=== PATIENT | female | born 1970 | race Asian ===

== ENCOUNTER → 2018-02-07 12:17 | Outpatient (CLI) | payer BC, SELFPAY ==
[2018-02-07 14:28] LABS: AST(SGOT) 17 U/L (15-37); Alanine Aminotransfer ALT/SGPT 22 U/L (13-56); Albumin, Serum 3.9 g/dL (3.2-5.0); Alkaline Phosphatase 67 U/L (45-117); Anion Gap 8 (5-15); BUN 10 mg/dL (7-18); BUN/Creat Ratio 15.1 RATIO (10-20); Calcium,Total 8.8 mg/dL (8.5-10.1); Chloride 105 mmol/L (98-107); Creatinine, Serum 0.66 mg/dL (0.55-1.02); EST Glomerular Filtration Rate 102 mL/min (>60); Est Glom Filt Rate - Afr Amer 124 mL/min (>60); Globulin 3.8 g/dL (2.2-4.2); Glucose 97 mg/dL (74-106); Magnesium 2.2 mg/dL (1.6-2.6); Potassium 3.6 mmol/L (3.5-5.1); Protein, Total 7.7 g/dL (6.4-8.2); Sodium Level 140 mmol/L (136-145)
[2018-02-07 14:34] LABS: Vitamin B12 666 pg/mL (211-911); Vitamin D,25 Hydroxy 28.4 ng/mL (29.95-100.01)
== END ==
PROVIDERS: Family Provider Family Medicine; PCP Family Medicine; Visit Provider Family Medicine
DX: E55.9 Vitamin D deficiency, unspecified (principal); E53.8 Deficiency of other specified B group vitamins; R53.83 Other fatigue; Z51.81 Encounter for therapeutic drug level monitoring
CPT/HCPCS: 36415; 80053; 82306; 82607; 83735

== ENCOUNTER → 2018-02-20 12:00 | Outpatient (CLI) | payer BC, SELFPAY | PROVIDERS: Family Provider Family Medicine; PCP Family Medicine; Visit Provider Family Medicine | DX: Z12.31 Encounter for screening mammogram for malignant neoplasm of breast (principal) | CPT/HCPCS: 77063; 77067 ==

== ENCOUNTER → 2018-06-03 13:12 | Outpatient (CLI) | payer SELFPAY ==
--- NOTE | 2018-06-03 13:14 | RAD_ITS ---
STUDY: X-RAY - RIGHT SHOULDER REASON FOR EXAM: Female, 47 years old. Pain. TECHNIQUE: 3 view(s) of the shoulder. COMPARISON: Chest x-ray 06/08/2016. FINDINGS: There is a 2.4 x 2 cm lucency in the superolateral humeral head and greater tuberosity with thinning of the lateral cortex. There is a narrow zone of transition without demonstrated sclerotic rim. Findings are concerning for metastasis or myeloma. Bone cyst is an additional consideration but typically demonstrate sclerotic margins. Although the projection is different, this lesion was not demonstrated in the humeral head on the prior chest x-ray. There is no fracture or dislocation. There is mild elevation of the distal clavicle relative to the acromion, consistent with low-grade acromioclavicular injury. There is no significant change compared to the prior chest x-ray. Joint spaces are otherwise well-maintained. RAD/Shoulder min 2 Views IMPRESSION: Lucent lesion in the superolateral humeral head, concerning for malignancy. Consider bone scintigraphy for further evaluation. Electronically Signed: Mela Vincent MD at 23:25 EST Tel , Service support ,
--- OUTSIDE RECORDS SUMMARY | 2018-09-04 23:53 | XMS RPT_ITS ---
:1970 Author Organization OHIP Care Team Providers Name Role Phone Rachel Mosley Attending Unavailable Caitlin Smith Referring Unavailable Chicorelli, Rachel Attending Unavailable Chicorelli, Rachel Referring Unavailable Malys, Caitlin Primary Care Unavailable Malys, Caitlin Attending Unavailable Malys, Caitlin Referring Unavailable Malys, Caitlin Primary Care Unavailable Malys, Caitlin Attending Unavailable Malys, Caitlin Primary Care Unavailable Chicorelli, Rachel Attending Unavailable Malys, Caitlin Primary Care Unavailable Chicorelli, Rachel Referring Unavailable Chicorelli, Rachel Attending Unavailable Chicorelli, Rachel Referring Unavailable Malys, Caitlin Primary Care Unavailable ASSESSMENT, HEALTH RISK Attending Unavailable ASSESSMENT, HEALTH RISK Referring Unavailable Malys, Caitlin Primary Care Unavailable PROBLEMS PROBLEMS DATE TYPE CONDITION / CODE ATTENDING STATUS SOURCE 06/03/2018 Unknown M25.511 - Pain in Chicorelli, Active [place] right shoulder / [facility] M25.511(ICD-10) Hospital Repository 06/03/2018 Unknown M75.51 - Bursitis Chicorelli, Active [place] of right shoulder [facility] / M75.51(ICD-10) Hospital Repository 06/03/2018 Unknown M75.41 - Chicorelli, Active [place] Impingement [facility] syndrome of right Hospital shoulder / Repository M75.41(ICD-10) 02/07/2018 Unknown R53.83 - Other Malys, Caitlin Active [place] fatigue / Community R53.83(ICD-10) Hospital Repository 02/07/2018 Unknown Z51.81 - Malys, Caitlin Active [place] Encounter for Community therapeutic drug Hospital level monitoring Repository / Z51.81(ICD-10) 02/07/2018 Unknown E55.9 - Vitamin D Malys, Caitlin Active [place] deficiency, Community unspecified / Hospital E55.9(ICD-10) Repository 02/07/2018 Unknown E53.8 - Malys, Caitlin Active [place] Deficiency of Community other specified B Hospital group vitamins / Repository E53.8(ICD-10) PROCEDURES PROCEDURES No Procedure Records FoundRESULTS RESULTS ORTHOPEDIC VISIT Observed: 06/13/2018 Status: F Source: [place] REPORT 11:45 AM [facility] HOSPITAL REPOSITORY [facility] [address] [place] [address] OFFICE VISIT Date of Service: 06/03/18 MR#: [id number] Acct: [id number] Name: BYRDGIOVANNY Cheung Rep #: [id number] : 1970 Provider: Rachel Mosley DO Age/Sex: 47/F Location: [facility] [place].S[place] Status: Signed Intake Intake Visit Reasons: RIGHT SHOULDER Is patient in pain?: Yes Allergies No Known Allergies Allergy (Unverified 06/03/18 13:03) [facility] Social History Smoking Status: Never smoker HPI RIGHT SHOULDER: Details: GIOVANNY BYRD is a 47 year old F here today for right shoulder pain. She states that she has had pain for about 3 months. She denies any known injury. Patient states that she works out then painted for 4 hours and is unsure if she injured her shoulder but she noticed pain following those activities. Patient has pain over her anterior shoulder and lateral shoulder. She has limited range of motion due to pain. She has pain with reaching across her body. Patient denies any recent xrays, injections or MRI. She denies any physical therapy. Patient denies any ibuprofen or icing. Denies numbness, tingling or other associated symptoms. Denies fever chills or other constitutional symptoms. ROS Const Reports system reviewed and no additional complaints, except as docu Eyes Reports system reviewed and no additional complaints, except as docu ENT Reports system reviewed and no additional complaints, except as docu Card Reports system reviewed and no additional complaints, except as docu Resp Reports system reviewed and no additional complaints, except as docu GI Reports system reviewed and no additional complaints, except as docu Reports system reviewed and no additional complaints, except as docu Musc Reports joint pain, Reports limited joint movement Skin/Breast Reports system reviewed and no additional complaints, except as docu Neuro Yes system reviewed and no additional complaints, except as docu Psych Reports system reviewed and no additional complaints, except as docu Endo Reports system reviewed and no additional complaints, except as docu Ortho Exam Right Shoulder Skin/Wound: Yes CDI Contralateral Normal: Yes Testing: Positive Hawkin's, AROM-External Rotation at side 0-60, AROM-Forward Elevation 0-180 (150) and TTP Biceps; negative TTP AC Joint or translation Internal Rotation: L1 SHOULDER: strength 5/5 Office Procedures Kenalog 40 mg/mL suspension for injection (triamcinolone acetonide) 80 mg Intra-Articular ONCE Injections Yes Subacromial Injection Right Office Meds Kenalog Performing Provider: Rachel Mosley DO Administered by: Rachel Mosley DO on 06/03/18 13:52 Dose Route Admin Location Lot Number Expiration DateNDC Freight Broker Agent 80 mg Intra-Articularright shoulder [id number] 08/16/19 8411-4591-81 [facility] Assessment AND Plan 1. Subacromial impingement of right shoulder M75.41 Plan on xray of shouleder, questionable lucency/bone cyst at greater tuberosity. will await final read from radiology and proceed from there. patient doesnt have other complaints- no fever, chills, weight gain/loss or sweat at night, may be incidental finding but may need bone scan vs MRI with contrast. Again, awaiting final rad read and will proceed accordingly. patient also has what appears to be chronic ac separation vs normal anatomical variant. no pain at Ac joint. addendum 06/05- called patient, left message. will order bone scan based on rad recommendations. will discuss with patient and try to call again tomorrow. X-rays were reviewed. There is no obvious fracture, dislocation, or lucency noted, signs of old AC joint separation. Educated on the anatomy of the shoulder and explained that she has impingement and bursitis. Her treatment options are do nothing, PT with HEP, injection and if the conservative treatment fails will consider an MRI. Explained the risks and benefits of injection today and patient elects to proceed. Follow up as needed or sooner if pain, swelling, numbness or associated symptoms, or concerns develop. All questions answered. Patient in agreement of plan. Orders Orders: Medications Discontinued: Kenalog (triamcinolone acetonide) Ntpouzde93 mg (2 mL) Intra-Articular ONCE 2 mL 0RF NS nued Reason: Office Medication has been Docu mented as given 2. 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) 06/13/18 1148 <Electronically signed by Rachel Mosley DO> Date Rachel Mosley DO Cosigner Signature: Date (if applicable) CC: BONE SCAN THREE Observed: 06/13/2018 Status: F Source: [place] PHASE 9:17 AM [facility] REPOSITORY [facility] Imaging Services [address] [place] [address] Bone Scan Three Phase MR#: [id number] Acct: [id number] Name: GIOVANNY BYRD Rep #: [id number] : 1970 F 47 From: Addi Sears DO PCP: Caitlin Smith DO Status: REG CLI Study: Bone Scan Three Phase Date of Exam: 06/13/18 Exam# [id number] Ordering Dr: Rachel Mosley DO CLINICAL: 47-year-old female with history of right shoulder pain and radiographic abnormality defined on plain film x-ray report right shoulder 06/03/2018. LIMITED 99m Tc MDP THREE PHASE BONE SCINTIGRAPHY COMPARISON: Plain film radiograph report right shoulder 06/03/2018 FINDINGS: Following the intravenous administration of 25.8 mCi of 99m Tc MDP, three-phase bone acquisitions of the cervical-thoracic spine, anterior-posterior chest reveal: 1. The flow and immediate static blood pool acquisitions demonstrate normal, symmetric arterial and venous phase distribution of the radiopharmaceutical. There is physiologic distribution of the radiotracer in the cardiac and hepatic blood pool. There is apparent visualization of the current pole left kidney collecting system. 2. Delayed images depict mild increased radiopharmaceutical concentration identified in the right proximal humeral metaphysis which appears to correlate with the radiographic abnormality defined on plain film x-ray of the right shoulder dated 06/03/2018. 3. Facilitated uptake is otherwise symmetrically noted in the acromioclavicular, sternoclavicular and glenohumeral compartments of both shoulders. 4. The remaining limited skeletal structures are scintigraphically unremarkable. NM/Bone Scan Three Phase IMPRESSION: 1. The increase in radiopharmaceutical concentration identified in the right proximal humeral metaphysis appears to correlate with the radiographic abnormality defined on plain film x-ray of the right shoulder report dated 06/03/2018. Correlation with magnetic resonance imaging may be of benefit for further evaluation. 2. 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 Electronically Signed: Addi Sears DO at 22:17 EST Tel , Service support , CC: Rachel Mosley DO; Caitlin Smith DO Ecologist Technician: Signed SHOULDER MIN 2 VIEWS Observed: 06/03/2018 Status: F Source: [place] 1:14 PM [facility] REPOSITORY [facility] Imaging Services [address] [place] [address] Shoulder min 2 Views MR#: [id number] Acct: [id number] Name: GIOVANNY BYRD Rep #: [id number] : 1970 F 47 From: Mela Vincent MD PCP: Caitlin Smith DO Status: REG CLI Study: Shoulder min 2 Views Date of Exam: 06/03/18 Exam# [id number] Ordering Dr: Rachel Mosley DO STUDY: X-RAY - RIGHT SHOULDER REASON FOR EXAM: Female, 47 years old. Pain. TECHNIQUE: 3 view(s) of the shoulder. COMPARISON: Chest x-ray 06/08/2016. FINDINGS: There is a 2.4 x 2 cm lucency in the superolateral humeral head and greater tuberosity with thinning of the lateral cortex. There is a narrow zone of transition without demonstrated sclerotic rim. Findings are concerning for metastasis or myeloma. Bone cyst is an additional consideration but typically demonstrate sclerotic margins. Although the projection is different, this lesion was not demonstrated in the humeral head on the prior chest x-ray. There is no fracture or dislocation. There is mild elevation of the distal clavicle relative to the acromion, consistent with low-grade acromioclavicular injury. There is no significant change compared to the prior chest x-ray. Joint spaces are otherwise well-maintained. RAD/Shoulder min 2 Views IMPRESSION: Lucent lesion in the superolateral humeral head, concerning for malignancy. Consider bone scintigraphy for further evaluation. Electronically Signed: Mela Vincent MD at 23:25 EST Tel , Service support , CC: Rachel Mosley DO; Caitlin Smith DO Ecologist Technician: Signed LIPID PROFILE Collected: 04/01/2018 Status: F Source: [place] 8:15 AM [facility] REPOSITORY TYPE CODE TESTS RESULT OUT OF RANGE REFERENCE UNITS LAB L501.4900 200 mg/dL Normal CHOL 144 Result Comment: <200 mg/dL Desirable 200-240 mg/dL Borderline >240 mg/dL High Risk LAB L501.5000 mg/dL Normal TRIG 97 Result Comment: The drugs N-Acetylcysteine and Metamizole may falsely depress this assay. Serum Triglycerides Reference Interval Normal <150 mg/dL Borderline high 150 - 199 mg/dL High 200 - 499 mg/dL Very High > or = 500 mg/dL LAB L501.6400 mg/dL Normal HDL 60 Result Comment: The drugs N-Acetylcysteine and Metamizole may falsely depress this assay. Reference Range HDL <40 mg/dL Low HDL Cholesterol HDL >or= 60 mg/dL High HDL Cholesterol LAB L501.6500 0-130 mg/dL Normal LDL 65 LAB L501.6600 5-40 mg/dL Normal VLDL 19 Performed By: #### L500.4100, L501.0100 #### [facility] [address] [place], [address] GLUCOSE Collected: 04/01/2018 Status: F Source: [place] 8:15 AM [facility] REPOSITORY TYPE CODE TESTS RESULT OUT OF RANGE REFERENCE UNITS LAB L501.0100 74-106 mg/dL Normal GLU 77 Result Comment: Please note revised GLUCOSE reference range effective 2017. Performed By: #### L500.4100, L501.0100 #### [facility] [address] [place], [address] SCREENING MAMM (CAD), Observed: 02/20/2018 Status: F Source: [place] BILAT 12:02 PM [facility] HOSPITAL REPOSITORY [facility] Imaging Services [address] [address] SCREENING MAMM (CAD), BILAT MR#: [id number] Acct: [id number] Name: GIOVANNY BYRD Rep #: [id number] : 1970 F 47 From: Dorian Lopez MD PCP: Caitlin Smith DO Status: REG CLI Study: SCREENING MAMM (CAD), BILAT Date of Exam: 02/20/18 Exam# [id number] Ordering Dr: Caitlin Smith DO MAMMOGRAPHY - BILATERAL SCREENING REASON FOR EXAM: Female, 47 years old. Routine annual screening examination. PERTINENT HISTORY: Non-contributory. TECHNIQUE: Digital bilateral breast reymundo (3D mammographic acquisition) in the CC and MLO projections. 2-D mediolateral oblique (MLO) and craniocaudad (CC) views of both breasts were obtained. CAD: Full Field Digital Mammography with Computer Added Detection was performed. COMPARISON: Comparison is made with prior study dated October 15, 2016 and April 11, 2015. FINDINGS: Breast Composition: The breasts are extremely dense, which lowers the sensitivity of mammography. There are no dominant masses or suspicious calcifications. Stable small bilateral axillary lymph nodes. No other significant abnormalities are identified. There has been no significant change since the prior study. BI/SCREENING MAMM (CAD), BILAT IMPRESSION: Stable bilateral screening mammogram. Yearly follow-up mammogram recommended. (A) ASSESSMENT CATEGORY: BIRADS Category 2: Benign. A letter regarding these results will be sent to the patient by the facility within 30 days. Approximately 10% of breast cancers are not detected by mammography. A normal mammogram should not delay biopsy of a clinically suspicious abnormality. [id number] Electronically Signed: Dorian Lopez MD at 14:39 EDT Tel [phone], Service support , CC: Caitlin Smith DO Ecologist Technician: Signed COMPREHENSIVE METABOLIC Collected: 02/07/2018 Status: F Source: [place] LOYD 12:30 PM [facility] REPOSITORY TYPE CODE TESTS RESULT OUT OF RANGE REFERENCE UNITS LAB L501.0100 74-106 mg/dL Normal GLU 97 Result Comment: Please note revised GLUCOSE reference range effective 2017. LAB L501.1000 7-18 mg/dL Normal BUN 10 LAB L501.1100 0.55-1.02 mg/dL Normal CREAT,SERUM 0.66 Result Comment: The validity of the calculated GFR AND GFRAA in patients over 70 years has not been determined. Clinical correlation is essential. LAB L501.1110 >60 mL/min Normal EST GFR 102 Result Comment: Non- GFR Calc LAB L501.1115 >60 mL/min Normal EST GFR - AA 124 Result Comment: GFR Calc LAB L501.1300 10-20 RATIO Normal BUN/CRE 15.1 LAB L501.1500 6.4-8.2 g/dL T Normal PROT 7.7 LAB L501.1800 3.2-5.0 g/dL Normal ALB 3.9 LAB L501.1950 2.2-4.2 g/dL Normal GLOB 3.8 LAB L501.2000 0.9-2.4 RATIO Normal A/G 1.0 LAB L501.2200 8.5-10.1 mg/dL CA Normal 8.8 LAB L501.4100 15-37 U/L Normal AST 17 LAB L501.4305 45-117 U/L Normal ALK P 67 LAB L501.4405 13-56 U/L Normal ALT 22 LAB L501.4600 0.20-1.00 mg/dL T Normal BILI 0.60 LAB L501.5300 136-145 mmol/L NA Normal 140 LAB L501.5600 3.5-5.1 mmol/L K Normal 3.6 LAB L501.5900 98-107 mmol/L CL Normal 105 LAB L501.6100 21.0-32.0 mmol/L Normal CO2 27.0 LAB L501.6200 5-15 Normal GAP 8 Performed By: #### L500.4050, L501.5200 #### [facility] [address] [place], [address] MAGNESIUM Collected: 02/07/2018 Status: F Source: [place] 12:30 PM [facility] REPOSITORY TYPE CODE TESTS RESULT OUT OF RANGE REFERENCE UNITS LAB L501.5200 1.6-2.6 mg/dL Normal MG 2.2 Performed By: #### L500.4050, L501.5200 #### [facility] [address] [place], [address] VITAMIN B12 Collected: 02/07/2018 Status: F Source: [place] 12:30 PM [facility] REPOSITORY TYPE CODE TESTS RESULT OUT OF RANGE REFERENCE UNITS LAB L503.0105 211-911 pg/mL Normal Vitamin B12 666 Performed By: #### L503.0105, L506.1000 #### [facility] [address] [place], [place], [address] VITAMIN D,25 HYDROXY Collected: 02/07/2018 Status: F Source: [place] 12:30 PM [facility] REPOSITORY TYPE CODE TESTS RESULT OUT OF REFERENCE UNITS RANGE LAB L506.1000 29.95-100.01 ng/mL Low Vitamin D 28.4 25-OH Result Comment: Vitamin D 25(OH) Status Range Deficiency <20 ng/mL (50nmol/L) Insuffciency 20 - 30 ng/mL (50 - 75 nmol/L) Sufficiency 30 - 100 ng/mL (75 - 250 nmol/L) Toxicity >100 ng/mL (>250 nmol/L) Performed By: #### L503.0105, L506.1000 #### [facility] [address] [place], [place], [address] ALLERGIES ALLERGIES DATE TYPE / CODE NAME / CODE REACTION SEVERITY SOURCE 06/03/2018 Drug No Known Unknown [place] [facility] Allergy/4160 Allergies/F00 Hospital 86227(SNOMED [id number](RXNOR Repository CT) M) ENCOUNTERS ENCOUNTERS ADMIT/DISCHARGE ACCOUNT ADMITTING ENCOUNTER LOCATION SOURCE NUMBER CLASS 06/13/2018 [id number] Amb[place] [facility] ing:NM Repository 06/12/2018 [id number] Ambulatory [place] 1 [facility] ing:PT Repository 06/03/2018 [id number] Ambulatory [place] 3 [facility] ing:HPRAD Repository 06/03/2018/ [id number] Ambulatory BMSBuilding:B [place] 8 9 [facility] Repository 04/01/2018 [id number] [place] [facility] ing:HW Repository 02/20/2018 [id number] Ambulatory [place] 5 [facility] ing:OPBI Repository 02/07/2018 [id number] Ambulatory [place] 7 [facility] ing:MTLAB Repository PAYERS PAYERS ENCOUNTER GUARANTOR PAYER SUBSCRIBER SOURCE 06/13/2018 GIOVANNY [id number] Primary GIOVANNY Cheung HANDOB: [id number] Hospital [id number]: [id number] Repository [phone] () Date:9116-09-20HN [address] [place] [address] [id number]: 06/13/2018 Secondary NOT GIVENUNK [place] Insurance:SELF PAY [facility] Number: Effective Repository Date:2018-06-11 06/12/2018 GIOVANNY Cheung [id number] Primary GIOVANNY Cheung HANDOB: [place] Insurance:ANTHEMPolic [id number] [place] Number: [facility] [address]Wdz: [id number] Repository [phone] () Date:5440-19-47VS [address], [place] [address]GG: 06/12/2018 Secondary NOT GIVENUNK [place] Insurance:SELF PAY [facility] Number: Effective Repository Date:2018-06-03 06/03/2018 GIOVANNY [id number] Primary NOT GIVENUNK [place] Insurance:SELF PAY [place] [id number]: [phone]) Number: Effective Repository [phone] () Date:2018-06-03 06/03/2018 GIOVANNY [id number] Primary DONG LU HANDOB: [place] Insurance:ANTHEMPolic [id number] [facility] [place] Number: [facility] [address]Wje: (717) [id number] Repository [phone] () Date:8500-60-18SH [address] [place] [address] 27[address]FO: 06/03/2018 Secondary NOT GIVENUNK [place] Insurance:SELF PAY [facility] Hospital Number: Effective Repository Date:2018-06-03 04/01/2018 Giovanny Quinones1 Primary NOT GIVENUNK [place] Insurance:SELF PAY [place] [id number]: [phone]) Number: Effective Repository [phone] () Date:2018-03-24 02/20/2018 Giovanny [id number] Primary Dong Lu HanDOB: [place] Insurance:ANTHEMPolic [id number] [facility] [place] Number: [facility] [address]Nrq: [phone]) [id number] Repository [phone] () Date:7912-45-68OB [address] [place] [address] 69[address]UG: 02/20/2018 Secondary NOT GIVENUNK [place] Insurance:SELF PAY [facility] Hospital Number: Effective Repository Date:2018-02-03 02/07/2018 Giovanny Lu [id number] Primary Dong Lu HanDOB: [place] Insurance:ANTHEMPolic [id number] [facility] [place] [facility] [address]Uxy: [phone]) [id number] Repository [phone] () Date:[id number] [address] [place] [address]LA: 02/07/2018 Secondary NOT GIVENUNK [place] Insurance[facility]LF [facility] Effective Repository Date:2018-02-07
== END ==
PROVIDERS: Family Provider Family Medicine; PCP Family Medicine; Referring Provider Orthopaedic Surgery; Visit Provider Orthopaedic Surgery
DX: M25.511 Pain in right shoulder (principal)
CPT/HCPCS: 73030

== ENCOUNTER 2018-06-12 13:53 | Outpatient (RCR) | payer BC, SELFPAY | END 2018-06-12 19:00 | disposition home or self-care (01) | LOC: PT 13:53 | PROVIDERS: Family Provider Family Medicine; PCP Family Medicine; Referring Provider Orthopaedic Surgery; Visit Provider Orthopaedic Surgery | DX: M75.51 Bursitis of right shoulder (principal); M75.41 Impingement syndrome of right shoulder ==

== ENCOUNTER → 2018-06-13 09:15 | Outpatient (CLI) | payer BC, SELFPAY ==
--- NOTE | 2018-06-13 09:17 | NM_ITS ---
CLINICAL: 47-year-old female with history of right shoulder pain and radiographic abnormality defined on plain film x-ray report right shoulder 06/03/2018. LIMITED 99m Tc MDP THREE PHASE BONE SCINTIGRAPHY COMPARISON: Plain film radiograph report right shoulder 06/03/2018 FINDINGS: Following the intravenous administration of 25.8 mCi of 99m Tc MDP, three-phase bone acquisitions of the cervical-thoracic spine, anterior-posterior chest reveal: 1. The flow and immediate static blood pool acquisitions demonstrate normal, symmetric arterial and venous phase distribution of the radiopharmaceutical. There is physiologic distribution of the radiotracer in the cardiac and hepatic blood pool. There is apparent visualization of the current pole left kidney collecting system. 2. Delayed images depict mild increased radiopharmaceutical concentration identified in the right proximal humeral metaphysis which appears to correlate with the radiographic abnormality defined on plain film x-ray of the right shoulder dated 06/03/2018. 3. Facilitated uptake is otherwise symmetrically noted in the acromioclavicular, sternoclavicular and glenohumeral compartments of both shoulders. 4. The remaining limited skeletal structures are scintigraphically unremarkable. NM/Bone Scan Three Phase IMPRESSION: 1. The increase in radiopharmaceutical concentration identified in the right proximal humeral metaphysis appears to correlate with the radiographic abnormality defined on plain film x-ray of the right shoulder report dated 06/03/2018. Correlation with magnetic resonance imaging may be of benefit for further evaluation. 2. 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 Electronically Signed: Addi Sears DO at 22:17 EST Tel , Service support ,
== END ==
PROVIDERS: Family Provider Family Medicine; PCP Family Medicine; Referring Provider Orthopaedic Surgery; Visit Provider Orthopaedic Surgery
DX: M85.621 Other cyst of bone, right upper arm (principal)
CPT/HCPCS: 78315

== ENCOUNTER → 2018-08-15 16:35 | Outpatient (CLI) | payer BC, SELFPAY ==
[2018-08-15 17:47] LABS: ALB/GLOB Ratio 1.1 RATIO (0.9-2.4); AST(SGOT) 16 U/L (15-37); Alanine Aminotransfer ALT/SGPT 24 U/L (13-56); Alkaline Phosphatase 74 U/L (45-117); Anion Gap 9 (5-15); BUN 9 mg/dL (7-18); BUN/Creat Ratio 12.8 RATIO (10-20); Calcium,Total 8.6 mg/dL (8.5-10.1); Chloride 107 mmol/L (98-107); EST Glomerular Filtration Rate 95 mL/min (>60); Est Glom Filt Rate - Afr Amer 115 mL/min (>60); Globulin 3.8 g/dL (2.2-4.2); Glucose 89 mg/dL (74-106); LDH 161 U/L (84-246); Potassium 3.6 mmol/L (3.5-5.1); Protein, Total 7.8 g/dL (6.4-8.2); Sodium Level 141 mmol/L (136-145)
[2018-08-18 11:02] LABS: CA 27.29 10.6 U/mL (0.0-38.6); Cancer Antigen 125 13.1 U/mL (0.0-38.1); Carbohydrate AG 19-9 7 U/mL (0-35); Carcinoembryonic Antigen 0.9 ng/mL (0.0-4.7)
== END ==
PROVIDERS: Family Provider Family Medicine; PCP Family Medicine; Referring Provider Family Medicine; Visit Provider Family Medicine
DX: R93.89 Abnormal findings on diagnostic imaging of other specified body structures (principal); M89.9 Disorder of bone, unspecified
CPT/HCPCS: 36415; 80053; 82378; 83615; 86300; 86301; 86304

== ENCOUNTER → 2018-08-18 09:03 | Outpatient (CLI) | payer BC, SELFPAY ==
--- NOTE | 2018-08-18 09:09 | RAD_ITS ---
STUDY: X-RAY BONE SURVEY COMPLETE REASON FOR EXAM: Female, 47 years old. Lytic bone lesion in the right humeral head. Rule out additional lesions TECHNIQUE: 1 One view of the pelvis was obtained. 2 views of the cervical spine were obtained. 2 views of the thoracic spine were obtained. 2 views of the lumbar spine were obtained. 1 views of the femur. 1 views of the humerus. : 1 views of the skull were obtained. COMPARISON: Plain film right shoulder dated 06/03/2018 as well as bone scan dated 06/13/2018. FINDINGS: Lungs are clear. Heart size is within normal limits. As seen on the prior radiograph, there is a lytic process at the greater tuberosity of the right humeral head. No other lytic or blastic lesions noted throughout the osseous structures. Specifically, no calvarial lesions as well. Remaining stranding soft tissues are within normal limits. Bone scan done June 13, 2018 demonstrated no additional areas of abnormal uptake. RAD/Bone Survey Comp(Axial&Append) IMPRESSION: No other areas of lytic or blastic involvement of the osseous structures. Again, recommend MRI right shoulder to further evaluate lytic lesion. Electronically Signed: Butch Nuñez DO at 10:04 EST Tel , Service support ,
== END ==
PROVIDERS: Family Provider Family Medicine; PCP Family Medicine; Visit Provider Family Medicine
DX: M89.9 Disorder of bone, unspecified (principal)
CPT/HCPCS: 77075

== ENCOUNTER → 2018-10-24 17:03 | Outpatient (CLI) | payer BC, SELFPAY ==
--- NOTE | 2018-10-24 17:07 | MRI_ITS ---
STUDY: MRI RIGHT SHOULDER REASON FOR EXAM: Female, 47 years old. Pain. Lytic lesion. Abnormal x-ray TECHNIQUE: Standardized fat and water weighted pulse sequences were obtained in all 3 orthogonal planes. COMPARISON: Bone scan June 13, 2018. X-rays June 03, 2018 and August 18, 2018. FINDINGS: Tendinosis of the supraspinatus with partial intrasubstance and bursal surface distal tendon tears, series 6 image 06/03. Normal infraspinatus tendon. Normal subscapularis tendon. Normal teres minor tendon. Normal supraspinatus muscle. Normal infraspinatus muscle. Normal subscapularis muscle. Normal teres minor muscle. Normal glenohumeral articulation. Normal humeral head and visualized proximal humerus. Normal biceps labral complex. Normal intracapsular long biceps tendon. Normal labrum. Normal capsulo- ligamentous complex. Normal rotator interval. There is mild osteoarthritis of the acromioclavicular articulation. There is a Type IV morphology (inferior convex) acromion, with a neutral orientation. There is mild fluid distention of the subacromial bursa, consistent with mild subacromial-subdeltoid bursitis. Normal visualized coracohumeral and coracoacromial ligaments. Normal quadrilateral space. Normal axillary space. Normal deltoid muscle. Normal trapezius muscle. There is no enhancing mass. No focal destruction. MRI/Upper Ext Joint Only W/WO Cont IMPRESSION: No osseous destruction seen. No enhancing mass. Partial tears of the distal supraspinatus tendon. Subacromial subdeltoid bursitis. Mild acromioclavicular arthrosis Electronically Signed: Mike Toledo MD at 8:42 EDT , Service support ,
== END ==
PROVIDERS: Family Provider Family Medicine; PCP Family Medicine; Referring Provider Orthopaedic Surgery; Visit Provider Orthopaedic Surgery
DX: M89.9 Disorder of bone, unspecified (principal)
CPT/HCPCS: 73223; A9575

== ENCOUNTER → 2019-02-04 | Outpatient (CLI) | payer BC, SELFPAY ==
[2019-02-04 17:34] LABS: Absolute Lymphocyte Count 2.52 X10^3/uL (0.83-4.51); Absolute Neutrophil Count 4.2 X10^3/uL (2.0-7.7); Basophil# 0.04 X10^3/uL; Basophil% 0.5 % (0-1); Eosinophils% 2.7 % (0-5); Hematocrit 41.1 % (37-47); Hemoglobin 13.4 g/dL (12.0-15.0); Lymphocyte # 2.52 X10^3/ul (4.0); Lymphocyte % 33.6 % (19-41); Mean Corp Hgb Conc 32.6 g/dL (32-36); Mean Corpuscular Hgb 30.7 pg (27.0-32.0); Mean Corpuscular Volume 94.1 fL (81-99); Mean Platelet Vol. 9.7 fl (6.2-12.0); Monocyte# 0.58 X10^3/uL; Monocyte% 7.7 % (0-10); NRBC Flagged by Analyzer 0 % (0-5); Neutrophil # 4.16 X10^3/uL (2.7-7.7); Neutrophil % 55.4 % (47-70); Platelet Count 280 K/mm3 (150-450); RBC Distribution Width CV 11.8 % (11.6-14.6); Red Blood Count 4.37 M/mm3 (4.2-5.4); White Blood Count 7.5 K/mm3 (4.4-11.0)
[2019-02-04 18:17] LABS: Progesterone Level 0.21 ng/mL (See Comment)
[2019-02-04 18:24] LABS: Estradiol 190.3 pg/mL; Follicle Stimulating Hormone 4.7 mIU/mL; Free T3 2.5 pg/mL (2.18-3.98); Luteinizing Hormone 2.1 mIU/mL; T4 Free Direct 1.12 ng/dL (0.76-1.46); Thyroid Stim Hormone (TSH) 3.67 uIU/mL (0.358-3.74)
== END | disposition home or self-care (01) ==
LOC: MTLAB 17:00
PROVIDERS: Family Provider Family Medicine; PCP Family Medicine; Referring Provider Family Medicine; Visit Provider Family Medicine
DX: N93.8 Other specified abnormal uterine and vaginal bleeding (principal); E55.9 Vitamin D deficiency, unspecified; R53.83 Other fatigue
CPT/HCPCS: 36415; 82306; 82670; 83001; 83002; 84144; 84439; 84443; 84481; 85025

== ENCOUNTER → 2019-02-20 | Outpatient (CLI) | payer BC, SELFPAY ==
--- NOTE | 2019-02-20 14:13 | US_ITS ---
STUDY: ULTRASOUND OF THE FEMALE PELVIS - COMPLETE REASON FOR EXAM: Female, 48 years old. Irregular bleeding TECHNIQUE: Transabdominal and Transvaginal TECHNICAL QUALITY: Adequate. COMPARISON: None. FINDINGS: The uterus is retroflexed and is in a midline position. The uterus measures 8.5 x 5.0 x 4.9 cm. The cervix is anteverted. The endometrium measures 5 mm in thickness, and is hyperechoic. There is no demonstrated endometrial mass. There is no demonstrated myometrial mass. The right ovary is visualized. The right ovary measures 4.4 x 1.9 x 1.2 cm. There is no right ovarian cyst or ovarian mass. There is no visualized right adnexal mass or complex lesion. There is normal arterial and normal venous vascularity. The left ovary is visualized. The left ovary measures 2.5 x 1.2 x 1.2 cm. There is no left ovarian cyst or ovarian mass. There is no visualized left adnexal mass or complex lesion. There is normal arterial and normal venous vascularity. There is a moderate amount of pelvic free fluid. US/Pelvic (Non ) IMPRESSION: Moderate amount of pelvic free fluid. Otherwise, unremarkable pelvic ultrasound. Electronically Signed: Dany Kaufman, at 15:40 EDT Tel , Service support ,
--- NOTE | 2019-02-20 14:13 | US_ITS ---
STUDY: ULTRASOUND OF THE FEMALE PELVIS - COMPLETE REASON FOR EXAM: Female, 48 years old. Irregular bleeding TECHNIQUE: Transabdominal and Transvaginal TECHNICAL QUALITY: Adequate. COMPARISON: None. FINDINGS: The uterus is retroflexed and is in a midline position. The uterus measures 8.5 x 5.0 x 4.9 cm. The cervix is anteverted. The endometrium measures 5 mm in thickness, and is hyperechoic. There is no demonstrated endometrial mass. There is no demonstrated myometrial mass. The right ovary is visualized. The right ovary measures 4.4 x 1.9 x 1.2 cm. There is no right ovarian cyst or ovarian mass. There is no visualized right adnexal mass or complex lesion. There is normal arterial and normal venous vascularity. The left ovary is visualized. The left ovary measures 2.5 x 1.2 x 1.2 cm. There is no left ovarian cyst or ovarian mass. There is no visualized left adnexal mass or complex lesion. There is normal arterial and normal venous vascularity. There is a moderate amount of pelvic free fluid. US/Transvaginal Non- IMPRESSION: Moderate amount of pelvic free fluid. Otherwise, unremarkable pelvic ultrasound. Electronically Signed: Dany Kaufman, at 15:40 EDT Tel , Service support ,
== END | disposition home or self-care (01) ==
PROVIDERS: Family Provider Family Medicine; PCP Family Medicine; Referring Provider Family Medicine; Visit Provider Family Medicine
DX: N93.8 Other specified abnormal uterine and vaginal bleeding (principal); N94.6 Dysmenorrhea, unspecified
CPT/HCPCS: 76830; 76856; 93976

== ENCOUNTER → 2019-02-27 | Outpatient (CLI) | payer BC, SELFPAY ==
--- NOTE | 2019-02-27 15:41 | BI_ITS ---
MAMMOGRAPHY - BILATERAL SCREENING REASON FOR EXAM: Female, 48 years old. Routine annual screening examination. PERTINENT HISTORY: Non-contributory. TECHNIQUE: Digital bilateral breast ben (3D mammographic acquisition) in the CC and MLO projections. 2-D mediolateral oblique (MLO) and craniocaudad (CC) views of both breasts were obtained. CAD: Full Field Digital Mammography with Computer Added Detection was performed. COMPARISON: Comparison is made with prior study dated February 20, 2018 and October 15, 2016. FINDINGS: Breast Composition: The breasts are extremely dense, which lowers the sensitivity of mammography. There are no dominant masses or suspicious calcifications. No other significant abnormalities are identified. There has been no significant change since the prior study. BI/SCREEN MAMM (CAD) W/BEN BILAT IMPRESSION: Stable bilateral screening mammogram. Yearly follow-up mammogram recommended. (A) ASSESSMENT CATEGORY: BIRADS Category 1: Negative. A letter regarding these results will be sent to the patient by the facility within 30 days. Approximately 10% of breast cancers are not detected by mammography. A normal mammogram should not delay biopsy of a clinically suspicious abnormality. [id number] Electronically Signed: Dorian Lopez, at 8:33 EDT , Service support ,
== END | disposition home or self-care (01) ==
LOC: OPBI 15:39
PROVIDERS: Family Provider Family Medicine; PCP Family Medicine; Referring Provider Family Medicine; Visit Provider Family Medicine
DX: Z12.31 Encounter for screening mammogram for malignant neoplasm of breast (principal)
CPT/HCPCS: 77063; 77067

== ENCOUNTER 2019-03-25 09:56 | Day surgery (SDC) | payer BC, SELFPAY ==
--- NOTE | 2019-03-20 10:45 | HP_ITS ---
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 Is patient in pain?: No Allergies No Known Allergies Allergy (Unverified 03/20/19 10:19) Medications levonorgestrel-ethinyl estradiol 0.1 mg-20 mcg tablet 1 tab PO DAILY #28 tab 03/20/19 [History Confirmed 03/20/19] pantoprazole 40 mg tablet,delayed release 40 mg PO DAILY #30 tab 03/20/19 [Rx Confirmed 03/20/19] zolpidem 5 mg tablet 5 mg PO ONCE PRN #30 tab 03/20/19 [History Confirmed 03/20/19] PFSH Medical History (Updated 03/20/19 @ 10:11 by Kasey Turner) Dysmenorrhea (Acute) Chronic insomnia (Chronic) Nausea (Acute) Surgical History (Updated 03/20/19 @ 10:11 by Kasey Turner) History of (Acute) Family History (Updated 03/20/19 @ 10:12 by Kasey Turner) Father Hypertension Social History (Updated 03/20/19 @ 10:45 by Deidre Chowdhury MD) Smoking Status: Never smoker second hand exposure: No alcohol intake: current alcohol intake frequency: holidays/special occasions only substance use type: does not use caffeine: Yes what type of physical activity do you participate in: aerobics frequency: 1-2 times per week duration: 45-60 minutes/day HPI HPI HPI: GOPI BYRD, is a 48 F who presents to the office today for HPI HPI Surgical H&P: Yes HPI: GOPI BYRD, is a 48 F who presents to the office today for epigastric pain and reflux. Patient states that she has had epigastric pain off and on since college. She describes herself as having weak stomach. Patient has never had an EGD. Patient states that she gets really hungry she can get some epigastric pain rates it an 8?9/10 and will improve with eating. Patient also does notice acid reflux about 5 days at the week and takes related data eating PRN for this. Patient states she no longer has any issues with diarrhea after she is stayed away from lactose. Patient has bowel movements daily denies any blood denies any history of colonoscopy or family history of colon cancer or gastric cancer. Patient will also states that if she eats beef or greasy foods she may have that epigastric pain and nausea after eating as well-- does not seem to be immediately after eating but occurs before an hour after eating. ROS General General: No fatigue Cardio Cardiovascular: No chest pain Gastro Gastrointestinal: Yes abdominal pain, Yes nausea or vomiting (no vomiting), No diarrhea, No constipation, No blood in stool, Yes acid reflux, No hemorrhoids, No ulcers, No gallbladder problem, No black,tarry stools Exam Const General: cooperative, comfortable, no acute distress Resp Effort & Inspection: normal respiratory effort Cardio Rate: regular rate GI Inspection: non-distended, scar (Low midline incision, ) Palpation: soft, no guarding, nontender Neuro General: oriented x3 Extrem General: no clubbing, cyanosis or edema Psych Affect: normal affect Assessment & Plan Problems 1. Gastroesophageal reflux disease K21.9 2. Epigastric pain R10.13 Plan We will give patient a prescription of Protonix 40 mg p.o. daily as she does have reflux symptoms at least 5 times a week. Also plan for an EGD. Patient states her previous diarrhea has improved since she has been avoiding lactose and she has regular bowel movements and no need for a colonoscopy currently. Patient did states she had issues with greasy food and beef with abdominal pain afterwards pointing to the epigastric but the pain was not immediately after eatting--question if she could have some gallbladder related symptoms. Discussed with patient that we would first try the Protonix and the scope if she continued to have symptoms on the medication would get an ultrasound of the gallbladder. I have discussed the above with the patient. I have offered the patient EGD for evaluation. I have explained the risks/benefits of the procedure and described the procedure. I have discussed the risks with the patient, including but not limited to: infection, bleeding, perforation of the GI tract requiring emergency surgery, inability to complete the procedure, injury to any internal organs, complications of anesthesia, etc. - the patient understands and agrees to proceed. I have answered all the patient's questions to the patient's satisfaction and the patient has no further questions. Deidre Chowdhury M.D. Pager: [phone] [facility] [address] [place] [address], [facility], [address] [place] [address] Office: [phone] Medications New: pantoprazole 40 mg PO DAILY 30 tabs 1RF Plan Detail Follow Up will schedule EGD Coding Level of Care Code Off vis,new,level 3 Diagnoses Gastroesophageal reflux disease K21.9 Epigastric pain R10.13 03/20/19 1045 <Electronically signed by Deidre Samson am, MD> Date _ Deidre Chowdhury MD H&P has been reviewed. Patient has been examined. Clinical changes are noted: Patient states that she did not start the Protonix until Saturday and Saturday night she did have some kiwi so on Saturday she woke up with a really bad reflux and epigastric pain. Patient states that the acid pain is improved but she does still does have some epigastric pain, which she notices even with water.
[2019-03-25 10:28] VITALS: BP 112/68; PULSE 72; RESP 16; TEMP 36.9; O2SAT 97; BMI 23.0
[2019-03-25 10:31] LABS: Internal QC Validated? YES +Cl - CLEAR BKGD; Pregnancy, Urine Negative Negative
[2019-03-25] MEDS: Lactated Ringers 1,000 ML 100 ML IV (10:36)
--- NOTE | 2019-03-25 11:00 | EGD_PTH ---
PATIENT: GOPI BYRD LOC: EN U#:[id number] AGE/SX: 48/F ROOM: RE03/25/[address]: Dr. Deidre Chowdhury MD : 1970 BED: DIS: 03/25/2019 SPEC #: [id number] RECD: 03/25/19 12:27 STATUS: ERICK DE PAZ #: [id number] TOY: 03/25/19 11:[address]: Deidre Chowdhury DEPT: SURGICAL PATHOLOGY RECD BY: Eliseo Albert ENTERED: 03/25/19 14:10 SP TYPE: EGD BIOPSY ANDRES DR: DO Caitlin Joe Tissues: A - Gastric mucous membrane B - Gastric mucous membrane C - Gastric mucous membrane Procedures: Surgery Specimen Level IV HEADER OPERATION: EGD ([facility]) PRE-OP DIAGNOSIS: GERD, epigastric TISSUE SUBMITTED: A. Antral biopsy, B. Gastric stomach biopsy, C. GE junction biopsy MICROSCOPIC DIAGNOSIS A. Antral biopsy: Mild gastritis. See microscopic description and comment. B. Gastric biopsy: A fragment of gastric mucosa with minimal congestion, hemorrhage and chronic inflammation. C. GE junction, biopsy: A fragment of benign squamous epithelium. SJ:angi 03/26/19 COMMENT A. The results of immunohistochemistry for Helicobacter pylori will be reported separately ([id number]). MICROSCOPIC DESCRIPTION Slides are reviewed. A. The specimen shows fragments of gastric mucosa with chronic inflammatory cell infiltrates in the lamina propria consisting of lymphocytes and plasma cells, consistent with mild chronic gastritis. GROSS DESCRIPTION A - Received in fixative is one container labeled with the patient's name and designated antral biopsy. The specimen consists of one irregular fragment of light grier soft tissue that measures 0.6 x 0.3 x 0.1 cm. The specimen is totally submitted in one cassette. B - Received in fixative is one container labeled with the patient's name and designated gastric stomach biopsy. The specimen consists of one irregular fragment of light grier soft tissue that measures 0.5 x 0.2 x 0.1 cm. The specimen is totally submitted in one cassette. C - Received in fixative is one container labeled with the patient's name and designated GE junction biopsy. The specimen consists of one irregular fragment of light grier soft tissue that measures 0.3 x 0.2 x 0.1 cm. The specimen is totally submitted in one cassette. / SJ:rg 03/25/19 TC:3 CPT: 10702 x3
--- NOTE | 2019-03-25 11:00 | IMM_PTH ---
PATIENT: GOPI BYRD LOC: EN U#:[id number] AGE/SX: 48/F ROOM: RE03/25/[address]: Dr. Deidre Chowdhury MD : 1970 BED: DIS: 03/25/2019 SPEC #: [id number] RECD: 03/25/19 13:42 STATUS: ERICK REQ #: [id number] TOY: 03/25/19 11:[address]: Deidre Chowdhury DEPT: IMMUNOHISTOCHEMISTRY RECD BY: Radha Castro ENTERED: 03/25/19 13:42 SP TYPE: IMMUNO OTHR DR: DO Caitlin Joe Tissues: A - Stomach, NOS Procedures: H Pylori (initial) PHYSICIAN & INSTITUTION [place] [address] SPECIMEN INFORMATION: Tissue Source: A - Antral biopsy Clinical Info: GERD, epigastric pain Specimen Number: [id number] CPT code: 54359 METHODOLOGY: Deparaffinized sections of prefer/formalin-fixed tissue or PAP/DQ stained slides are incubated with monoclonal/polyclonal antibodies/oligonucleotide probes. Localization is made via biotin free immunoperoxidase method. Appropriate controls are performed and reacted as expected. Results on target cell population are indicated in the following table: RESULTS: ANTIBODY / CLONE RESULT Block A H Pylori (polyclonal) negative These tests were developed and their performance characteristics determined by [facility]. They may not have been cleared or approved by the U.S. Food and Drug Administration. The FDA has determined that such clearance or approval is not necessary. INTERPRETATION: A. Antral biopsy: Negative for Helicobacter pylori organisms. SJ:angi 03/26/19
[2019-03-25 11:29] VITALS: BP 112/68; BP 92/65; PULSE 72; RESP 16; TEMP 36.5; O2SAT 97
--- NOTE | 2019-03-25 11:32 | OP.ENDO_ITS ---
03/25/2019 Caitlin Smith [address] [place] [address] Re : Upper GI endoscopy procedure for Giovanny Rubio Dear Dr. Smith This procedure was performed on Monday, March 25, 2019. My impressions and recommendations are as follows: Impressions : - Z-line variable. Biopsied. - Erythematous mucosa in the pylorus. Biopsied. - Gastritis. Biopsied. - Normal examined duodenum. Recommendations : - Await pathology results. - Discharge patient to home. - Resume previous diet. - Use sucralfate tablets 1 gram PO QID. - Continue present medications. My findings are described in the full procedure note, which is enclosed. If I can be of further assistance, please feel free to contact me at Doctor phone number(s): , Work: . Sincerely, MD Deidre Martinez MD 03/25/2019 11:31:44 AM This report has been signed electronically.
[2019-03-25 11:34] VITALS: BP 112/68; BP 94/62; PULSE 70; RESP 16; O2SAT 98
[2019-03-25 11:39] VITALS: BP 112/68; BP 91/65; PULSE 71; RESP 16; O2SAT 99
[2019-03-25 11:44] VITALS: BP 112/68; BP 97/64; PULSE 68; RESP 16; TEMP 36.6; O2SAT 100
[2019-03-25 12:27] VITALS: BP 112/68
== END 2019-03-25 12:28 | disposition home or self-care (01) ==
LOC: EN 09:56 → AC 09:57
PROVIDERS: Anesthesiology; Family Provider Family Medicine; PCP Family Medicine; Referring Provider Family Medicine; Visit Provider Surgery
PROC: 0DJ08ZZ Inspection of Upper Intestinal Tract, Via Natural or Artificial Opening Endoscopic (ICD-10-PCS; CPT 43235; principal; 2019-03-25 10:55)
DX: K29.50 Unspecified chronic gastritis without bleeding (principal); K21.9 Gastro-esophageal reflux disease without esophagitis; Z79.899 Other long term (current) drug therapy
CPT/HCPCS: 43239; 81025; 88305; 88342; J7120; J2405